=== PATIENT | male | born 1950 | race Caucasian/White ===

== ENCOUNTER 2016-09-23 12:39 | Day surgery (SDC) | payer MEDICARE, OTHER ==
[~2016-09-23] VITALS: Ht 188 cm; Wt 76.0 kg
[~2016-09-23 12:39] MED LIST: ALBU8.5H2 INHALATION; CREST10T PO; DICY10CA56 PO; DUTA0.5C2 PO; FINA5TAB9 PO; IPRA3AMP IH; Lactated Ringer's 1,000 ML IV ONE; OXYC10TA69 PO; OXYC5TAB72 PO; POLY17PO6 PO; PROM25TA14 PO; RABE20TA5 PO; VALS160T2 PO
[2016-09-23] MEDS ORDERED: Propofol 10,000 mCg/mL 20 mL Inj ONE (12:40)
[2016-09-23] MEDS ORDERED: fentaNYL-PF 50 mCg/mL 2 mL Inj ONE (12:40)
[2016-09-23 13:00] VITALS: BP 152/84; PULSE 66; RESP 18; O2SAT 98
[2016-09-23] MEDS ORDERED: RIVA1TAB PO (13:05)
--- NOTE | 2016-09-23 13:32 | PCM.HPANE ---
Patient Data Surgeon Admitting Provider: Attending Provider:Teto Mckenzie MD Primary Care Physician:Luis M Fatima MD Other Provider:Mayelin Zepedaingham Anesthesia Reason for Visit Left Upper Quadrant Pain Ht/WT & BMI Body Mass Index Allergies Coded Allergies: codeine (Verified Allergy, Unknown, 09/19/16) erythromycin base (Verified Allergy, Unknown, 09/19/16) morphine (Verified Allergy, Unknown, 09/19/16) Medications Reported Medications Rivaroxaban (Xarelto)1 Each Tab.ds.pk1 Each PO 09/23/16 Promethazine 25 Mg Hulvlp28 Mg PO Q6H PRN For Nausea Ref 0 09/19/16 Oxycodone ER (Oxycontin)10 Mg Tab.er.12h10 Mg PO BID 09/19/16 oxyCODONE 5 Mg Tablet5 Mg PO Q4H PRN For Pain Ref 0 09/19/16 Polyethylene Glycol 3350 (Miralax)17 Gm Powd.pack17 Gm PO DAILY 09/19/16 Ipratropium/Albuterol Sulfate (Iprat-Albut 0.5-3(2.5) mg/3 mL Inhalant Soln)3 Ml Ampul.neb3 Ml IH Q6 Ref 0 09/19/16 Finasteride 5 Mg Tablet5 Mg PO DAILY 30 Days Ref 0 09/19/16 Valsartan (Diovan)160 Mg Enhnyk330 Mg PO DAILY 30 Days Ref 0 09/19/16 Rosuvastatin Calcium (Crestor)10 Mg Jzbdfq77 Mg PO DAILY 30 Days Ref 0 09/19/16 Dicyclomine (Bentyl)10 Mg Jbxpapd14 Mg PO QID 09/19/16 Dutasteride (Avodart)0.5 Mg Capsule0.5 Mg PO DAILY #30 CAPSULE Ref 0 09/19/[address] (Aciphex)20 Mg Phjpxw53 Mg PO DAILY Ref 0 09/19/16 Discontinued Reported Medications Albuterol HFA (Proair HFA)8.5 Gm Hfa.aer.ad2 Puffs INHALATION Q4H #1 INHALER 09/19/16 Stop/Bang Risk Assessment Category Category 1A: Patient has history of documented sleep apnea, and HAS NOT received any narcotic, sedative or anesthesia administration during this stay. Category 1B: Patient has history of documented sleep apnea, and HAS received any narcotic , sedative or anesthesia administration during this stay Category 2: Patient has SUSPECTED Obstructive Sleep Apnea, and HAS received any narcotic , sedative or anesthesia administration during this stay. Category 3: Patient has SUSPECTED Obstructive Sleep Apnea and HAS NOT received narcotic, sedative or anesthesia administration during this stay. Category 4: Outpatient in Procedural Areas with known sleep apnea or who screen positive for High Risk via the STOP/BANG questionnaire. Exam Exam General Appearance: Alert, Oriented X3, Cooperative, No Acute Distress HEENT/AIRWAY: MP 2 Lungs: Clear to Auscultation Heart: Exam Unremarkable Plan Impression Patient chart reviewed, patient interviewed and anesthestic plan with risks, benefits, and alternatives discussed, and informed consent obtained. ASA Physical Status: ASA3 Severe Disease Anesthetic Plan: MAC Bene/Risks/Altern/Consents: Yes HP Complete Prior to Induction: Yes Lukas Thornton MD Sep 23, 2016 08:00
--- NOTE | 2016-09-23 13:45 | PCM.ANEP2 ---
Post Anesthesia Evaluation ASA/CMS Post Anesthesia VS in Patient's Normal Range?: Yes Resp Stable; Airway Patent?: Yes CV Function & Hydration Stable: Yes Mental Status Recovered?: Yes Pain control Satisfactory?: Yes N/V Control Satisfactory?: Yes Lukas Thornton MD Sep 23, 2016 13:45
[2016-09-23 13:49] VITALS: BP 122/66; PULSE 74; RESP 18; O2SAT 99
[2016-09-23 13:57] VITALS: BP 121/73; PULSE 67; RESP 16; O2SAT 98
--- NOTE | 2016-09-23 21:26 | ENDO ---
[address] [address] ENDOSCOPY PROCEDURE PATIENT: MARI MOLINA : 1950 MR#: [id number] ADMIT: 09/23/2016 JOB ID: [id number] OPERATION: Esophagogastroduodenoscopy with biopsy. PREOPERATIVE DIAGNOSIS: Left upper quadrant pain. POSTOPERATIVE DIAGNOSIS(ES): Mild nonerosive gastritis status post biopsy. ANESTHESIA: Monitored anesthesia care. COMPLICATIONS: None. BLOOD LOSS: Minimal. DESCRIPTION OF PROCEDURE: After risks and benefits were explained, the patient's informed consent was obtained. After anesthesia administered, upper endoscope was then inserted into the mouth, intubating the esophagus, stomach, second portion of duodenum. Mucosa was examined. After the procedure, the scope withdrawn and procedure terminated. FINDINGS: Upon inspection of the esophagus, the esophagus was normal without masses, ulcers, lesions. Z-line located 40 cm from incisors. Upon entering the stomach, there was mild nonerosive gastritis that was seen throughout the entire stomach. No masses, ulcers, or lesions were seen. Retroflexion was normal. Duodenal bulb, first portion and 2nd portion were normal. Biopsies were taken from the antrum and body of the stomach. IMPRESSIONS: Mild nonerosive gastritis. RECOMMENDATIONS: Await pathology results. Follow up in GI clinic as needed. WIL
--- NOTE | 2016-09-25 10:36 | PATH ---
SURGICAL PATHOLOGY Attending Physician:Teto Mckenzie MD CASE STATUS: Signed Out PATIENT NAME: MARI MOLINA PID: [id number] : 1950 DATE COLLECTED:09/23/2016 00:00 SPECIMEN: 1: Gastric, Biopsy 2: Stomach, Antrum, Biopsy CLINICAL HISTORY: A: GASTRIC BODY BIOPSY B: ANTRUM BIOPSY FINAL DIAGNOSIS: 1.GASTRIC BODY BIOPSY: GASTRIC BODY MUCOSA WITH SCATTERED DILATED GLANDS, SUGGESTIVE OF PPI EFFECT. Negative for Helicobacter organisms. Negative for intestinal metaplasia. Negative for dysplasia and malignancy. 2.ANTRUM BIOPSY: REACTIVE GASTROPATHY, ANTRAL MUCOSA. Negative for Helicobacter organisms. Negative for intestinal metaplasia. Negative for dysplasia and malignancy. ICD10 code K29.70 GROSS DESCRIPTION: The specimen is received in two formalin filled containers labeled with the patient's name. 1). The specimen is sublabeled "gastric body" and consists of 3 portions of tissue which aggregate to 0.3 x 0.3 x 0.2 CM. The specimen is entirely submitted in cassette 1A. 2). The specimen is sublabeled "antrum" and consists of a 0.4 x 0.3 x 0.2 CM portion of tissue which is entirely submitted in cassette 2A. 09/24/2016 DAC MICRO DESCRIPTION: See diagnosis. ICD-9 CODES: CPT CODES: 1: 98647 2: 26583 Electronically Signed Out Janie Olvera MD [facility] [address], [place] [address] Technical component performed at [facility], [address] [place] [address] [address], [address]
== END 2016-09-23 23:59 | disposition home or self-care (01) ==
LOC: END 12:39
PROVIDERS: ATTEND Internal Medicine Gastroenterology
DX: K29.70 Gastritis, unspecified, without bleeding (principal); K31.9 Disease of stomach and duodenum, unspecified; N40.0 Benign prostatic hyperplasia without lower urinary tract symptoms; K21.9 Gastro-esophageal reflux disease without esophagitis; E55.9 Vitamin D deficiency, unspecified; E78.5 Hyperlipidemia, unspecified; J44.9 Chronic obstructive pulmonary disease, unspecified; M54.5 Low back pain; Z79.51 Long term (current) use of inhaled steroids
CPT/HCPCS: 43239; J7120